=== PATIENT | female | born 1970 | race Caucasian/White ===

== ENCOUNTER 2018-07-19 07:56 | Day surgery (SDC) | payer OTHER ==
[~2018-07-19] VITALS: Ht 152.4 cm; Wt 63.5 kg
[2018-07-19] MEDS ORDERED: BUPIVACAINE-MPF 0.25% 30 ML VIAL INJ ONE (09:05)
[2018-07-19] MEDS ORDERED: LIDOCAINE 1% 500 MG/50 ML VIAL ONE (09:05)
[2018-07-19] MEDS ORDERED: BUPIVACAINE-MPF/EPI 0.5% 30 ML VIAL INJ ONE (09:09)
[2018-07-19] MEDS ORDERED: LIDOCAINE/EPI MPF 1%1:200000 30 ML VIAL INJ ONE (09:09)
[2018-07-19] MEDS ORDERED: ONDANSETRON 4 MG/2 ML VIAL IV PRN (09:45)
[2018-07-19] MEDS ORDERED: MORPHINE SULFATE 4 MG/ML SYR IV PRN (09:45)
[2018-07-19] MEDS ORDERED: MORPHINE SULFATE 2 MG/ML SYR IVP PRN (09:45)
[2018-07-19] MEDS ORDERED: HYDROmorphone 1 MG/ML AMP IVP PRN (09:45)
[2018-07-19] MEDS ORDERED: HYDROcodone/APAP 5/325 MG 1 TAB TAB PO PRN (09:45)
== END 2018-07-19 10:08 | disposition home or self-care (01) ==
LOC: MDS 07:56 → MMU 07:57 → MDS 10:08
PROVIDERS: ATTEND Surgery
DX: Z45.2 Encounter for adjustment and management of vascular access device (principal); G43.909 Migraine, unspecified, not intractable, without status migrainosus; E11.9 Type 2 diabetes mellitus without complications; Z98.890 Other specified postprocedural states; Z90.710 Acquired absence of both cervix and uterus; Z85.3 Personal history of malignant neoplasm of breast; Z90.11 Acquired absence of right breast and nipple
CPT/HCPCS: 36590; J0690; J2001; J3490; J7030; J7060